=== PATIENT | male | born 1990 | race Caucasian/White ===

== ENCOUNTER 2017-04-28 19:58 | Inpatient (IN) ==
--- NOTE | 2017-04-28 21:01 | Emergency Department Note ---
IGreg Emily, am scribing for, and in the presence of, Dixon Luna MD 20: 58. Jeremy Cisneros Charles R, MD, personally performed the services described in this documentation, ascribed by Angi Garza in my presence, and it is both accurate and complete . Arrival - Arrival Chief Complaint: Abscess Stated Complaint: knot underarm and on upper arm, warm to touch ED Nursing Triage Note: C/O Abscess/redness/swelling. Onset 2 weeks ago. Pt reports going to PCP on Saturday was started on two difference antibiotics and reports that the swelling and redness is worse. Pt also reports a knot to his axilla. +low grade fever at home. Mode of Arrival: Ambulatory Limitations: No Limitations Source: Patient Time Seen by Provider: 04/28/17 20:32 - History of Present Illness HPI Narrative: Pt is a 27 y/o male who came to ED with c/o abscess on left arm just above elbow that started about 2 weeks ago. Pt notes he left one morning for work on the [employer] and the abscess started small. Spouse notes he came back with the abscess large and sensitive to the touch, increasing erythema and swelling. Pt notes having low grade fever of 99.5, and mild body aches, just nothing more than nml. Pt reports having a knot under left axilla and was given abx, but has worsened. Onset (ago): week(s) Consistency: constant Severity: moderate Severity scale (1-10): 5 Quality: aching, fullness Allergies/Adverse Reactions: Allergies Allergy/AdvReac Type Severity Reaction Status Date / Time No Known Allergies Allergy Verified 04/28/17 20:10 Home Medications: Home Medications Medication Instructions Recorded Confirmed Type Azithromycin [Zithromax] 500 mg PO DAILY 04/28/17 04/28/17 History Clindamycin Cap [Cleocin Cap] 300 mg PO Q8HR 04/28/17 04/28/17 History Review of System - Review of System 12 point system: reviewed and no additional remarkable complaints except as stated - Review of System Constitutional: Present: fever (low grade, usually 99.5). Absent: chills, weakness Respiratory: Absent: respiratory distress Cardiovascular: Absent: chest pain, syncope Gastrointestinal: Absent: abdominal pain, nausea Skin: Present: lesions (abscess on left arm; knot under left axilla). Absent: rash Neurological: Absent: headache Medical,Surgical,& Family Hx - Social History Smoking Status: Current every day smoker Frequency of Alcohol Use: None Type of Drug Use: None Exam Vital Signs: Vital Signs Temperature 99.4 F 04/28/17 20:42 Pulse Rate 98 H 04/28/17 20:42 Respiratory Rate 16 04/28/17 20:42 Blood Pressure 108/69 04/28/17 20:42 O2 Sat by Pulse Oximetry 100 04/28/17 20:11 - General General appearance: alert, in no apparent distress - Head Head exam: Present: atraumatic, normocephalic - Eye Eye exam: Present: PERRL, EOMI - ENT ENT exam: Present: mucous membranes moist. Absent: mucous membranes dry - Neck Neck exam: Present: full ROM, trachea midline - Chest Chest inspection: Present: symmetric chest wall rise - Respiratory Respiratory exam: Present: normal lung sounds bilaterally. Absent: respiratory distress - Cardiovascular Cardiovascular exam: Present: regular rate, normal rhythm, normal heart sounds - Extremities Exam Extremities exam: Present: full ROM, tenderness (large 5X7X7 oval area on anterior left arm just above the elbow, that is warm and tender to touch with mild swelling; associated area of 3X3X2 on left axilla is swollen and painful) . Absent: pedal edema - Neurological Exam Neurological exam: Present: alert, oriented X3, CN II-XII intact. Absent: motor sensory deficit - Psychiatric Psychiatric exam: Present: normal affect, normal mood - Skin Skin exam: Present: warm, dry Course - Consultations Consultation #1: Dr. Chisholm will admit patient Time: 21:00 Disposition Clinical Impression: Cellulitis, Abscess of skin or subcutaneous tissue Case discussed with: patient, patient's family Disposition: Still a Patient Condition: Stable Time of Disposition: 21:01
--- NOTE | 2017-04-28 22:00 | General Surg History&Physical ---
Assessment and Plan (1) Abscess of skin or subcutaneous tissue Status: Acute Assessment and plan: This patient has a large abscess in his left upper arm. I recommended admission for IV antibiotics and incision and drainage in the OR tomorrow. The patient understands the recommendation would like to proceed with the operation. I have discussed the risks, benefits, and alternatives of the operation, and the expected outcomes have been reviewed. The patient would like to proceed with the operation. Current Visit: Yes History of Present Illness Chief complaint: left upper arm abscess History of present illness: Mr. Antoine is a 27 year old male who presents to the ER with 2 week history of left upper arm abscess. He was treated with outpatient antibiotics and continued to have worsening pain and swelling with redness. He came to the ER today for evaluation. Home Medications Medication Instructions Recorded Confirmed Type Azithromycin [Zithromax] 500 mg PO DAILY 04/28/17 04/28/17 History Clindamycin Cap [Cleocin Cap] 300 mg PO Q8HR 04/28/17 04/28/17 History Allergies Allergy/AdvReac Type Severity Reaction Status Date / Time No Known Allergies Allergy Verified 04/28/17 20:10 Medical,Surgical,& Family Hx - Social History Smoking Status: Current every day smoker Frequency of Alcohol Use: None Type of Drug Use: None Exam - Constitutional Vitals: Period Temp Pulse Resp BP Sys/La Pulse Ox Last 24 Hr 99.4 F-99.4 F 98-98 16-16 108-108/69-69 100 General appearance: normal weight, no acute distress - Head Head exam: Present: normal inspection, normocephalic - Eye Eye exam: Present: EOMI Pupils: Present: LYNSEY - ENT ENT exam: Present: normal exam Mouth exam: Present: normal external inspection, normal voice - Neck Neck exam: Present: normal inspection, trachea midline - Respiratory Respiratory exam: Present: clear to auscultation bilaterally. Absent: accessory muscle use, chest wall tenderness - Cardiovascular Cardiovascular exam: Present: RRR. Absent: systolic murmur, tachycardia - GI/Abdominal GI/Abdominal exam: Present: normal bowel sounds, soft. Absent: tenderness, rebound - Extremities Exam Extremities exam: Present: other (There is a left upper arm abscess that is fluctuant and tender with erythema) - Back Exam Back exam: Present: normal inspection - Neurological Exam Neurological exam: Present: alert, oriented X3 Speech: Present: normal - Skin Skin exam: Present: normal color, warm - Constitutional Constitutional: Present: as per HPI - EENT Nose, mouth and throat: Present: as per HPI - Cardiovascular Cardiovascular: Present: as per HPI - Respiratory Respiratory: Present: as per HPI - Gastrointestinal Gastrointestinal: Present: as per HPI - Genitourinary Genitourinary: Present: as per HPI - Musculoskeletal Musculoskeletal: Present: as per HPI - Neurological Neurological: Present: as per HPI - Endocrine Endocrine: Present: as per HPI Hematologic/Lymphatic: Present: as per HPI
[2017-04-28] MEDS ORDERED: ACETAMINOPHEN 325 MG TABLET PO PRN (22:43)
[2017-04-28] MEDS ORDERED: HYDROmorphone 2 MG/1 ML VIAL IV PRN (22:43)
[2017-04-28] MEDS ORDERED: ONDANSETRON 4 MG/2 ML VIAL IV PRN (22:43)
[2017-04-29] MEDS: SODIUM CHLORIDE 0.9% 1,000 ML IV SCH ×3 (01:05→14:10)
[2017-04-29] MEDS ORDERED: VANCOMYCIN INJ 1,250 MG in SODIUM CHLORIDE 0.9% 250 ML IV SCH (01:30)
[2017-04-29] MEDS ORDERED: CLINDAMYCIN INJ 900 MG in PREMIX 1 EACH IV ONE (06:30)
[2017-04-29 07:02] LABS: Basophils # 0.1 10*3/uL (0.0-0.2); Basophils % 0.7 % (0.0-0.8); Eosinophils # 0.2 10*3/uL (0.0-0.87); Eosinophils % 2.1 % (0.00-10.9); Hematocrit 38.6 VOL% (42.0-52.0); Hemoglobin 13.6 GM/DL (14.0-18.0); Immature Granulocytes % 0.3 %; Immature Granulocytes Absolute 0.03 #; Mean Corpuscular HGB Conc 35.2 GM/DL (32-36); Mean Corpuscular Hemoglobin 31 PG (27-34); Mean Corpuscular Volume 88.5 FL (87-102); Mean Platelet Volume 11.7 FL (9.6-12.0); Monocytes # 1.1 10*3/uL (0.11-0.8); Monocytes % 10.3 % (1.7-12.7); Neutrophils # 6.3 10*3/uL (1.4-7.4); Neutrophils % 58.6 % (38.7-73.9); Platelet Count 394 T/CUMM (130-400); Red Blood Count 4.36 MC/CUMM (3.8-5.5); Red Cell Distribution Width 12.9 % (9.3-17.3); White Blood Count 10.7 T/CUMM (4-12)
[2017-04-29 07:31] LABS: Alanine Aminotransferase 23 U/L (16-61); Albumin 3.5 G/DL (3.4-5.0); Alkaline Phosphatase 83 U/L (45-117); Aspartate Amino Transferase 18 U/L (0-37); Bilirubin,Total < 0.39 MG/DL (0.2-1.0); Blood Urea Nitrogen 16 MG/DL (7-18); Calcium 9.1 MG/DL (8.5-10.1); Glucose 92 MG/DL (74-106); Magnesium 2.5 MG/DL (1.8-2.4); Osmolality,Calculated 275.7 MOS/KG (273-304); Potassium 4.9 MMOL/L (3.5-5.1); Sodium 138 MMOL/L (136-145); Total Protein 7.7 G/DL (6.4-8.3)
[2017-04-29] MEDS: PANTOPRAZOLE 40 MG VIAL IV SCH (08:39)
--- NOTE | 2017-04-29 08:55 | XRay Report ---
XR chest 2V Indication: SOB Comparison: None Technique: Frontal and lateral views of the chest. Findings: Heart size within normal limits. No focal consolidation, pleural effusion, or pneumothorax. Visualized osseous and surrounding soft tissue structures demonstrate no acute abnormality. Minimal chronic compression deformities of 3 vertebral bodies near the thoracic/lumbar junction with suggestion of at least partial osseous fusion and accentuation of normal thoracic kyphosis at this level. IMPRESSION: No acute cardiopulmonary process demonstrated. PROCEDURE INTERPRETED AT [facility] DEPARTMENT OF RADIOLOGY Final Report Signed by: Dr Warren Berry
[2017-04-29] MEDS ORDERED: BUPIVACAINE MPF 0.25% /EPI 30 ML VIAL ONE (10:26)
[2017-04-29] MEDS ORDERED: KETOROLAC 30 MG/1 ML VIAL ONE (11:15)
[2017-04-29] MEDS ORDERED: PROPOFOL 200 MG/20 ML VIAL IV ONE (11:15)
[2017-04-29] MEDS ORDERED: ONDANSETRON 4 MG/2 ML VIAL ONE (11:15)
[2017-04-29] MEDS ORDERED: DEXAMETHASONE 10 MG/1 ML VIAL ONE (11:15)
[2017-04-29] MEDS ORDERED: LIDOCAINE 1% 5 ML VIAL ONE (11:15)
--- NOTE | 2017-04-29 12:00 | Operative Note ---
Date of procedure: 04/29/17 Pre-op diagnosis: Left arm abscess with left axillary lymphadenopathy Post-op diagnosis: same Procedure: Preoperative diagnosis Complex abscess left upper arm with axillary lymphadenopathy Postoperative diagnosis Same Procedure performed 1. Incision and drainage of complex left upper arm abscess 2. Ultrasound left axilla with interpretation Findings A large pus pocket was found in the deep left upper arm. No vessels were exposed. There is no necrotic tissue that needed to be debrided. A large amount of pus was drained and cultures were sent to the lab. The left axillary ultrasound showed lymphadenopathy with no abscess. Complications None apparent Specimen Cultures from left arm abscess Anesthesia General LMA Blood loss Minimal Indications Complex abscess left upper arm with axillary lymphadenopathy Description of procedure The patient was taken to the operating room and transferred to the operating table in supine position. Pressure points were padded and SCDs placed lower extremities. General LMA anesthesia was administered. Left arm was prepped with [place] and draped sterilely as well as the axilla. Preoperative antibiotics were administered and a timeout was performed. Incision was made over the left upper arm abscess and a large pus pocket was found. Loculations were broken up the wound was irrigated and the cultures were sent from this to the lab. There is no necrotic tissue that required debridement. The wound was packed with wet-to-dry dressing using saline soaked gauze. An ultrasound was then done of the left axilla which showed bulky lymphadenopathy and no discrete abscess was seen. The wounds were then taken care of by wrapping with cast padding and Cob[place] after placing dry gauze over the left upper arm wound. Patient was awake from anesthesia and transferred to recovery. Postoperative plan Wound care and antibiotics Follow-up culture Implants: gauze packing Anesthesia: ERNAA Surgeon / Physician: Noble Chisholm Specimens: other (cultures) Condition: stable Disposition: PACU Results - Labs CBC & BMP: 04/29/17 06:19 04/29/17 06:19 Discharge Plan - Discharge Medications No Action Clindamycin Cap [Cleocin Cap] 300 mg PO Q8HR Azithromycin [Zithromax] 500 mg PO DAILY - Follow Up or Referral - Forms/Instructions
--- NOTE | 2017-04-29 12:11 | Anesthesia Post-Op ---
Anesthesia Post OP - Post Ansesthetic Evaluation Patient seen in post op: Yes Resp: within normal limits CV: within normal limits Mental: within normal limits Temp: within normal limits [id number]: within normal limits Nausea and Vomiting: within normal limits Pain: within normal limits
[2017-04-29] MEDS ORDERED: SEVOFLURANE 1 UNIT/15 MINUTE INH ONE (12:13)
[2017-04-29] MEDS ORDERED: MIDAZOLAM 2 MG/2 ML VIAL ONE (12:14)
[2017-04-29] MEDS ORDERED: fentaNYL 100 MCG/2 ML VIAL ONE (12:14)
[2017-04-29] MEDS: SULFAMETHOX/TRIMETHOPRIM 800-160 MG TABLET PO SCH ×2 (13:18→21:37)
[2017-04-29] MEDS ORDERED: CLINDAMYCIN INJ 600 MG in PREMIX 1 EACH IV SCH (14:30)
[2017-04-30] MEDS: SODIUM CHLORIDE 0.9% 1,000 ML IV SCH ×2 (03:13→07:06)
--- NOTE | 2017-04-30 07:17 | Discharge Summary ---
Hospital Course - Hospital Course Hospital Course: This patient was admitted with left upper arm abscess and axillary lymphadenopathy treated with incision and drainage of left arm abscess and ultrasound confirming lymphadenopathy in the left axilla on 04/29/2017. He was kept overnight and discharged home after his dressing change was done. He was discharged home on oral Bactrim double strength twice daily and pain medicine and follow-up with me in clinic on 05/06/2017 before he goes out of town. Diagnosis - Discharge Diagnosis (1) Abscess of skin or subcutaneous tissue Status: Acute Discharge Plan - Discharge Data Disposition: Disch To Home/Self Care Condition at Discharge: Stable Discharge Diet: advance to your usual diet Activity: resume usual activities as tolerated Hygiene: may shower Weight Bearing at Discharge: weight bear as tolerated Driving: other (Do not drive or operate heavy machinery for at least 24 hours and after you are off of narcotic pain medications.) Contact your physician if you experience:: fever over 101, Difficulty voiding, Redness or swelling, Nausea/Vomiting, Shortness of breath, Bleeding, pain uncontrolled by pain medications Wound / Dressing Care Instructions: Remove packing once daily and shower with soap and water. Repacked with wet-to-dry dressing using moist tap water soaked gauze that is ringdown and placed in the wound. Cover with dry gauze and wrapped the dressing on the arm. He can use Kerlix wrap and Chip wrap. - Discharge Medications New HYDROcodone/ACETAMIN 7.5-325 [[place] 7.5-325] 1 tablet PO Q4H PRN #10 tablet PRN Reason: Pain Moderate (4-7) Sulfameth/Trimeth 800-160 Tab [Bactrim DS Tab] 1 tablet PO BID #14 tablet Discontinued Clindamycin Cap [Cleocin Cap] 300 mg PO Q8HR Azithromycin [Zithromax] 500 mg PO DAILY - Follow Up or Referral Follow Up: Noble Chisholm MD [Physician] - 05/06/17 - Forms/Instructions Exam - Constitutional Vitals: Period Temp Pulse Resp BP Sys/La Pulse Ox Last 24 Hr 97.6 F-99.0 F 53-86 10-20 91-133/48-83 95-100 General appearance: normal weight, no acute distress - Head Head exam: Present: normal inspection, normocephalic - Eye Eye exam: Present: EOMI Pupils: Present: LYNSEY - ENT ENT exam: Present: normal exam - Neck Neck exam: Present: normal inspection - Respiratory Respiratory exam: Present: clear to auscultation bilaterally. Absent: accessory muscle use, chest wall tenderness - Cardiovascular Cardiovascular exam: Present: regular rate and rhythm. Absent: systolic murmur , tachycardia - GI/Abdominal GI/Abdominal exam: Present: normal bowel sounds, soft. Absent: tenderness, rebound - Extremities Exam Extremities exam: Present: other (The wound has responded nicely to drainage. The left upper arm has no residual erythema but is still indurated. The axillary lymphadenopathy has improved.) - Back Exam Back exam: Present: normal inspection - Neurological Exam Neurological exam: Present: alert, oriented X3 - Psychiatric Psychiatric exam: Present: normal affect, normal mood - Skin Skin exam: Present: normal color, warm Discharge Results Procedures and tests throughout hospitalization: Pending Orders 04/29/17 11:56 Abscess Culture Routine Anaerobic Culture Routine Labs on day of discharge: Labs from last 24 hours 04/29/17 06:19 Sodium 138 Potassium 4.9 Chloride 105 Carbon Dioxide 24 Anion Gap 13.9 BUN 16 Creatinine 0.90 GFR Calculation 134 BUN/Creatinine Ratio 17.00 Glucose 92 Calculated Osmolality 275.7 Calcium 9.1 Magnesium 2.5 H Total Bilirubin < 0.39 AST 18 ALT 23 Alkaline Phosphatase 83 Total Protein 7.7 Albumin 3.5 Globulin 4.2 H Albumin/Globulin Ratio 0.8 L DS: Provider Date of admission: 04/28/17 21:02 Primary care physician: . No PCP Attending physician on admission: Noble Chisholm MD Discharging clinician: Noble Chisholm MD Expected date of discharge: 04/30/17
[2017-04-30 07:58] VITALS: BP 113/66
[2017-04-30] MEDS: SULFAMETHOX/TRIMETHOPRIM 800-160 MG TABLET PO SCH (08:20)
[2017-04-30] MEDS: PANTOPRAZOLE 40 MG VIAL IV SCH (08:20)
== END 2017-04-30 10:05 | disposition home or self-care (01) | DRG 603 ==
LOC: N.ED 19:58 → N.EDINP 21:02 → N.3E 21:56
PROVIDERS: ADMIT Surgery; ATTEND Surgery